=== PATIENT | female | born 1990 | race Caucasian/White ===

== ENCOUNTER 2022-01-09 21:18 | Emergency (ER) | payer OTHER ==
[~2022-01-09] VITALS: Ht 165.1 cm; Wt 86.0 kg
[2022-01-09] MEDS ORDERED: PROMETHAZINE HC25 M1 PO (23:52)
[2022-01-09] MEDS ORDERED: METRONIDAZOLE500 MG PO (23:56)
[2022-01-09] MEDS ORDERED: ONDANSETRON ODT8 MG PO (23:56)
[2022-01-09] MEDS ORDERED: DEBLITANE0.35 MG PO (23:57)
== END 2022-01-10 00:24 | disposition home or self-care (01) ==
LOC: ED 21:18
DX: E86.0 Dehydration (principal); R11.10 Vomiting, unspecified; Z88.6 Allergy status to analgesic agent
CPT/HCPCS: 36415; 80048; 84703; 85025; 96374; 99284-25; A9270; J2550; J7030